=== PATIENT | male | born 1950 | race African-American/Black ===

== ENCOUNTER 2018-04-17 05:52 | Inpatient (IN) ==
[2018-04-11 12:52] LABS: INR 0.9; Partial Thromboplastin Time 27.4 SECS (0-40)
[2018-04-11 12:54] LABS: Albumin 3.4 G/DL (3.4-5.0); Bilirubin,Total 0.7 MG/DL (0.2-1.0); Osmolality,Calculated 279.3 MOS/KG (273-304); Potassium 3.8 MMOL/L (3.5-5.1); Total Protein 7.2 G/DL (6.4-8.3)
[2018-04-11 12:55] LABS: Basophils % 0.6 % (0.0-0.8); Eosinophils # 0.1 10*3/uL (0.0-0.87); Eosinophils % 1.4 % (0.00-10.9); Hematocrit 40.7 VOL% (42.0-52.0); Hemoglobin 12.8 GM/DL (14.0-18.0); Immature Granulocytes % 0.4 %; Immature Granulocytes Absolute 0.03 #; Lymphocytes # 2.6 10*3/uL (1.4-4.0); Lymphocytes % 37.5 % (21.2-54.2); Mean Corpuscular HGB Conc 31.4 GM/DL (32-36); Mean Corpuscular Hemoglobin 28 PG (27-34); Mean Corpuscular Volume 90.4 FL (87-102); Mean Platelet Volume 11.1 FL (9.6-12.0); Monocytes # 0.7 10*3/uL (0.11-0.8); Monocytes % 9.7 % (1.7-12.7); Neutrophils # 3.5 10*3/uL (1.4-7.4); Neutrophils % 50.4 % (38.7-73.9); Platelet Count 236 T/CUMM (130-400); Red Cell Distribution Width 14.2 % (9.3-17.3)
[2018-04-11 13:26] LABS: Apearance,Urine CLEAR (Clear); Bilirubin,Urine Negative (Negative); Blood, Urine Negative (Negative); Glucose,Urine (UA) Negative (Negative); Ketones,Urine 5 mg/dL (Negative); Mucus,Urine Moderate /LPF (Occasional); Nitrite,Urine Negative (Negative); Protein,Urine Negative; RBC,Urine <1 /HPF (0-4); Squamous Epithelial Cell,Urine Occasional /HPF (0-10); Urine Color Yellow (Yellow); Urine Specific Gravity 1.026 (1.001-1.035); WBC,Urine <1 /HPF (0-6)
[2018-04-17] MEDS ORDERED: VANCOMYCIN INJ 1,000 MG in SODIUM CHLORIDE 0.9% 250 ML IV ONE ×2 (06:00→08:00)
[2018-04-17] MEDS ORDERED: ceFAZolin 2,000 MG in PREMIX 1 EACH IV ONE (06:00)
[2018-04-17] MEDS ORDERED: CLINDAMYCIN INJ 50 ML IV ONE (06:32)
[2018-04-17] MEDS ORDERED: VANCOMYCIN 1,000 MG VIAL ONE (06:32)
[2018-04-17] MEDS ORDERED: TRANEXAMIC ACID 1,000 MG/10 ML VIAL ONE (06:39)
[2018-04-17] MEDS ORDERED: ROPIVACAINE 0.5% 30 ML VIAL ONE (06:45)
[2018-04-17] MEDS ORDERED: BUPIVACAINE SPINAL 0.75% 2 ML AMP SPINAL ONE ×2 (06:45→11:02)
[2018-04-17] MEDS ORDERED: LACTATED RINGERS 1,000 ML IV SCH (07:00)
[2018-04-17] MEDS ORDERED: BACITRACIN OINT 0.9 GM PACK TOP ONE ×2 (07:47→08:57)
[2018-04-17] MEDS ORDERED: fentaNYL 100 MCG/2 ML VIAL ONE (08:28)
[2018-04-17] MEDS ORDERED: MIDAZOLAM 2 MG/2 ML VIAL ONE (08:28)
[2018-04-17] MEDS ORDERED: ACETAMINOPHEN 1,000 MG/100 ML VIAL IV ONE (08:42)
[2018-04-17] MEDS ORDERED: ALBUTEROL 2.5 MG/3 ML NEB RESP TX PRN (09:05)
[2018-04-17] MEDS ORDERED: DEXTROSE 50% 25 GM/50 ML VIAL IV PRN (09:07)
[2018-04-17] MEDS ORDERED: HYDROmorphone 2 MG/1 ML VIAL IV PRN (09:07)
[2018-04-17] MEDS ORDERED: GLUCAGON 1 MG VIAL IM PRN (09:07)
[2018-04-17] MEDS ORDERED: MAGNESIUM HYDROXIDE SUSP 30 ML UDCUP PO PRN (09:07)
[2018-04-17] MEDS ORDERED: diphenhydrAMINE CAP 25 MG CAPSULE PO PRN (09:07)
[2018-04-17] MEDS ORDERED: oxyCODONE IR 5 MG TABLET PO PRN (09:07)
[2018-04-17] MEDS ORDERED: PROPOFOL 200 MG/20 ML VIAL IV ONE (11:01)
[2018-04-17] MEDS ORDERED: KETOROLAC 30 MG/1 ML VIAL ONE (11:01)
[2018-04-17] MEDS ORDERED: LACTATED RINGERS 1,000 ML IV ONE (11:01)
[2018-04-17] MEDS: INSULIN LISPRO 100 UNIT/ML SUBCUT SCH ×3 (12:09→21:09)
[2018-04-17] MEDS ORDERED: ceFAZolin 2,000 MG in PREMIX 1 EACH IV SCH (13:08)
[2018-04-17] MEDS: KETOROLAC 30 MG/1 ML VIAL IV SCH ×3 (15:40→22:18)
[2018-04-17] MEDS: HYDROmorphone 2 MG/1 ML VIAL IV PRN (15:46)
[2018-04-17] MEDS: ACETAMINOPHEN 500 MG TABLET PO SCH ×2 (15:53→21:07)
[2018-04-17] MEDS: CLINDAMYCIN INJ 900 MG in PREMIX 1 EACH IV SCH (18:27)
[2018-04-17] MEDS: ONDANSETRON 4 MG/2 ML VIAL IV PRN (18:28)
[2018-04-17] MEDS: LACTATED RINGERS 1,000 ML IV SCH ×2 (18:35)
[2018-04-17] MEDS: APIXABAN 2.5 MG TABLET PO SCH (21:07)
[2018-04-17] MEDS: ZALEPLON 5 MG CAPSULE PO SCH (21:08)
[2018-04-17] MEDS: metFORMIN 500 MG TABLET PO SCH (21:08)
[2018-04-17] MEDS: DOCUSATE SODIUM 100 MG CAPSULE PO SCH (21:08)
[2018-04-17] MEDS: SOTALOL 80 MG TABLET PO SCH (21:08)
[2018-04-18] MEDS: CLINDAMYCIN INJ 900 MG in PREMIX 1 EACH IV SCH (00:52)
[2018-04-18] MEDS: ACETAMINOPHEN 500 MG TABLET PO SCH ×2 (02:38→07:55)
[2018-04-18 06:29] LABS: Basophils % 0.4 % (0.0-0.8); Eosinophils # 0.2 10*3/uL (0.0-0.87); Hematocrit 34.8 VOL% (42.0-52.0); Hemoglobin 10.8 GM/DL (14.0-18.0); Immature Granulocytes % 0.4 %; Immature Granulocytes Absolute 0.03 #; Lymphocytes # 1.8 10*3/uL (1.4-4.0); Lymphocytes % 24.6 % (21.2-54.2); Mean Corpuscular Hemoglobin 28 PG (27-34); Mean Corpuscular Volume 91.1 FL (87-102); Monocytes # 0.8 10*3/uL (0.11-0.8); Monocytes % 11.1 % (1.7-12.7); Neutrophils # 4.6 10*3/uL (1.4-7.4); Neutrophils % 61.5 % (38.7-73.9); Platelet Count 178 T/CUMM (130-400); Red Blood Count 3.82 MC/CUMM (3.8-5.5); Red Cell Distribution Width 14.4 % (9.3-17.3); White Blood Count 7.4 T/CUMM (4-12)
[2018-04-18 06:45] LABS: Osmolality,Calculated 280.1 MOS/KG (273-304); Potassium 4.2 MMOL/L (3.5-5.1)
[2018-04-18] MEDS: INSULIN LISPRO 100 UNIT/ML SUBCUT SCH ×4 (07:45→21:01)
[2018-04-18] MEDS: ONDANSETRON 4 MG/2 ML VIAL IV PRN (07:51)
[2018-04-18] MEDS: HYDROmorphone 2 MG/1 ML VIAL IV PRN (07:51)
[2018-04-18] MEDS ORDERED: ATORVASTATIN 40 MG TABLET PO SCH ×2 (09:00→21:00)
[2018-04-18] MEDS: PANTOPRAZOLE 40 MG TABLET PO SCH (09:27)
[2018-04-18] MEDS: CLOPIDOGREL 75 MG TABLET PO SCH (09:27)
[2018-04-18] MEDS: metFORMIN 500 MG TABLET PO SCH ×2 (09:28→21:01)
[2018-04-18] MEDS: APIXABAN 2.5 MG TABLET PO SCH ×2 (09:28→21:01)
[2018-04-18] MEDS: TELMISARTAN 40 MG TABLET PO SCH (09:29)
[2018-04-18] MEDS: ISOSORBIDE MONONITRATE 60 MG TABLET PO SCH (09:29)
[2018-04-18] MEDS: DOCUSATE SODIUM 100 MG CAPSULE PO SCH ×2 (09:29→21:01)
[2018-04-18] MEDS: SOTALOL 80 MG TABLET PO SCH ×2 (09:29→21:00)
[2018-04-18] MEDS: FUROSEMIDE 20 MG TABLET PO SCH (09:32)
[2018-04-18] MEDS: EPLERENONE 25 MG TABLET PO SCH (12:27)
[2018-04-18] MEDS: oxyCODONE/ACETAMINOPHEN 5-325 MG TABLET PO PRN ×2 (16:59→21:02)
[2018-04-18] MEDS: CELECOXIB 200 MG CAPSULE PO SCH (17:08)
[2018-04-18] MEDS: LACTATED RINGERS 1,000 ML IV SCH (17:09)
[2018-04-18] MEDS: ZALEPLON 5 MG CAPSULE PO SCH (21:01)
[2018-04-19] MEDS: oxyCODONE/ACETAMINOPHEN 5-325 MG TABLET PO PRN ×4 (02:48→14:19)
[2018-04-19 05:17] LABS: Basophils % 0.4 % (0.0-0.8); Eosinophils # 0.2 10*3/uL (0.0-0.87); Eosinophils % 2.4 % (0.00-10.9); Hematocrit 34.7 VOL% (42.0-52.0); Hemoglobin 10.9 GM/DL (14.0-18.0); Immature Granulocytes % 0.4 %; Immature Granulocytes Absolute 0.04 #; Lymphocytes # 2.6 10*3/uL (1.4-4.0); Lymphocytes % 27.1 % (21.2-54.2); Mean Corpuscular HGB Conc 31.4 GM/DL (32-36); Mean Corpuscular Hemoglobin 29 PG (27-34); Mean Corpuscular Volume 90.8 FL (87-102); Monocytes % 10.5 % (1.7-12.7); Neutrophils # 5.7 10*3/uL (1.4-7.4); Neutrophils % 59.2 % (38.7-73.9); Platelet Count 173 T/CUMM (130-400); Red Blood Count 3.82 MC/CUMM (3.8-5.5); Red Cell Distribution Width 14.4 % (9.3-17.3); White Blood Count 9.7 T/CUMM (4-12)
[2018-04-19] MEDS: INSULIN LISPRO 100 UNIT/ML SUBCUT SCH ×3 (07:20→16:30)
[2018-04-19] MEDS: EPLERENONE 25 MG TABLET PO SCH (09:11)
[2018-04-19] MEDS: SOTALOL 80 MG TABLET PO SCH (09:11)
[2018-04-19] MEDS: metFORMIN 500 MG TABLET PO SCH (09:11)
[2018-04-19] MEDS: APIXABAN 2.5 MG TABLET PO SCH (09:12)
[2018-04-19] MEDS: ISOSORBIDE MONONITRATE 60 MG TABLET PO SCH (09:12)
[2018-04-19] MEDS: TELMISARTAN 40 MG TABLET PO SCH (09:12)
[2018-04-19] MEDS: DOCUSATE SODIUM 100 MG CAPSULE PO SCH (09:12)
[2018-04-19] MEDS: CELECOXIB 200 MG CAPSULE PO SCH (09:12)
[2018-04-19] MEDS: CLOPIDOGREL 75 MG TABLET PO SCH (09:12)
[2018-04-19] MEDS: FUROSEMIDE 20 MG TABLET PO SCH ×2 (09:12→09:15)
[2018-04-19] MEDS: PANTOPRAZOLE 40 MG TABLET PO SCH (09:20)
[2018-04-19 16:46] VITALS: BP 145/75
== END 2018-04-19 17:07 | disposition home health service (06) | DRG 470 ==
LOC: N.OR 05:52 → N.SDSINP 05:54 → N.3E 09:08 → N.OR 10:20 → N.3E 11:47
PROVIDERS: ADMIT Orthopaedic Surgery; ATTEND Orthopaedic Surgery